=== PATIENT | female | born 1955 | race Hispanic/Latino ===

== ENCOUNTER 2021-06-25 09:18 | Observation (INO) | payer MEDICARE ==
[~2021-06-25] VITALS: Ht 167.6 cm; Wt 82.8 kg
[2021-06-25 09:33] LABS: BASOPHILS % (AUTO) 0.2 % (0.0-5.0); EOSINOPHILS % (AUTO) 0.2 % (0.0-8.0); LYMPHOCYTES % (AUTO) 14.2 % (21.0-51.0); MEAN CORPUSCULAR HEMOGLOBIN 28.8 pg (27.0-33.0); MEAN CORPUSCULAR VOLUME 90.1 fL (79-99); NEUTROPHILS % (AUTO) 76.1 % (40.0-77.0); PLATELET COUNT (AUTO) 213 K/uL (130-400); RED BLOOD CELL COUNT(AUTO) 4.55 MIL/uL (4.00-5.50); RED CELL DISTRIBUTION WIDTH 14.1 % (11.0-15.5); WHITE BLOOD COUNT (AUTO) 12.1 K/uL (4.8-10.8)
[2021-06-25 09:55] LABS: CREATININE 0.9 mg/dL (0.5-1.5); POTASSIUM 4.2 mmol/L (3.5-5.1)
[2021-06-25 09:59] LABS: ALBUMIN 3.3 g/dL (3.5-5.0); BILIRUBIN,TOTAL 0.5 mg/dL (0.2-1.0); TOTAL PROTEIN, SERUM 8.2 g/dL (6.0-8.3)
[2021-06-25 10:11] LABS: B-TYPE NATRIURETIC PEPTIDE 15 pg/mL (0-100)
[2021-06-25 10:48] VITALS: BP 154/67
[2021-06-25 11:03] LABS: APPEARANCE,URINE Clear (CLEAR); BILIRUBIN,URINE Negative (NEGATIVE); COLOR,URINE Yellow (YELLOW); GLUCOSE, URINE (UA) Negative (NEGATIVE); KETONES,URINE Negative (NEGATIVE); LEUKOCYTE ESTERASE ,URINE Trace (NEGATIVE); NITRATE,URINE Negative (NEGATIVE); OCCULT BLOOD,URINE Negative (NEGATIVE); PH,URINE 6.5 (5.0-8.0); PROTEIN,URINE Negative (NEGATIVE); UROBILINOGEN,URINE 0.2 mg/dL (0.2-1.0)
[2021-06-25 11:17] LABS: RBC,URINE 0-1 /HPF (0-1)
[2021-06-25 11:18] LABS: AMORPHOUS SEDIMENT,UR Moderate /LPF (None Seen); BACTERIA,URINE Few /HPF (None Seen); SQUAMOUS EPITHELIAL CELL,UR Moderate /HPF (0-2)
[2021-06-25 13:21] VITALS: BP 148/68
[2021-06-25 15:56] LABS: CREATINE KINASE, TOTAL 28 U/L (21-232); MYOGLOBIN 22 ng/mL (10-92); TROPONIN I < 0.04 ng/mL (0.00-0.06)
[2021-06-25 16:50] VITALS: BP 141/73
[2021-06-25] MEDS: ACETYLCYSTEINE 20% 200MG/ML 4ML VIAL IH SCH (18:17)
[2021-06-25] MEDS: IPRATROPIUM/ALBUTEROL SULFATE 3 ML SOLUTION IH SCH (18:17)
[2021-06-25] MEDS: MEROPENEM 1 GM VIAL IVP SCH (18:32)
[2021-06-25] MEDS: GUAIFENESIN-CODEINE 5 ML SYRUP PO SCH ×2 (18:32→23:53)
[2021-06-25 20:53] VITALS: BP 138/54
[2021-06-25 21:22] LABS: CREATINE KINASE, TOTAL 26 U/L (21-232); MYOGLOBIN 22 ng/mL (10-92); TROPONIN I < 0.04 ng/mL (0.00-0.06)
[2021-06-25 23:48] VITALS: BP 125/53
[2021-06-26] MEDS: ACETYLCYSTEINE 20% 200MG/ML 4ML VIAL IH SCH ×4 (00:14→19:14)
[2021-06-26] MEDS: IPRATROPIUM/ALBUTEROL SULFATE 3 ML SOLUTION IH SCH ×4 (00:14→19:14)
[2021-06-26] MEDS: MEROPENEM 1 GM VIAL IVP SCH ×3 (00:49→17:43)
[2021-06-26 03:41] LABS: BASOPHILS % (AUTO) 0.2 % (0.0-5.0); EOSINOPHILS % (AUTO) 0.4 % (0.0-8.0); HEMATOCRIT 37.3 % (36-48); LYMPHOCYTES % (AUTO) 27.3 % (21.0-51.0); MEAN CORPUSCULAR HEMOGLOBIN 28.4 pg (27.0-33.0); MEAN CORPUSCULAR HGB CONC 31.1 g/dL (32.0-36.0); MEAN CORPUSCULAR VOLUME 91.2 fL (79-99); MONOCYTES % (AUTO) 12.1 % (3.0-13.0); NEUTROPHILS % (AUTO) 59.4 % (40.0-77.0); PLATELET COUNT (AUTO) 196 K/uL (130-400); RED BLOOD CELL COUNT(AUTO) 4.09 MIL/uL (4.00-5.50); RED CELL DISTRIBUTION WIDTH 14.3 % (11.0-15.5); WHITE BLOOD COUNT (AUTO) 8.2 K/uL (4.8-10.8)
[2021-06-26 03:53] VITALS: BP 117/61
[2021-06-26 04:02] LABS: CARBON DIOXIDE 31 mmol/L (21-32); CHLORIDE 98 mmol/L (101-111); CREATINE KINASE, TOTAL 31 U/L (21-232); GLOMERULAR FILTR. RATE CALC 59 mL/min (>60); GLUCOSE,RANDOM 116 mg/dL (70-105); MYOGLOBIN 27 ng/mL (10-92); POTASSIUM 4.2 mmol/L (3.5-5.1); SODIUM SERUM 133 mmol/L (136-145); TROPONIN I < 0.04 ng/mL (0.00-0.06); UREA NITROGEN, BLOOD 14 mg/dL (7-18)
[2021-06-26 07:30] VITALS: BP 120/42
[2021-06-26] MEDS: GUAIFENESIN-CODEINE 5 ML SYRUP PO SCH ×3 (10:36→22:13)
[2021-06-26 11:00] VITALS: BP 144/39
[2021-06-26 15:46] LABS: ABG BASE EXCESS 1.5 mmol/L (-2.0-3.0); ABG OXYGEN SATURATION 97.6 % (95.0-99.0); ABG PCO2 29 mmHg (32-45)
[2021-06-26 16:00] VITALS: BP 143/56
[2021-06-26 19:00] VITALS: BP 143/87
[2021-06-27] VITALS: BP 141/67
[2021-06-27] MEDS: IPRATROPIUM/ALBUTEROL SULFATE 3 ML SOLUTION IH SCH ×3 (00:29→11:25)
[2021-06-27] MEDS: ACETYLCYSTEINE 20% 200MG/ML 4ML VIAL IH SCH (00:29)
[2021-06-27] MEDS: MEROPENEM 1 GM VIAL IVP SCH ×2 (00:56→10:22)
[2021-06-27 04:00] VITALS: BP 123/64
[2021-06-27] MEDS: GUAIFENESIN-CODEINE 5 ML SYRUP PO SCH ×3 (04:00→14:07)
[2021-06-27 08:02] VITALS: BP 123/42
[2021-06-27] MEDS ORDERED: SOLU-MEDROL 40MG VIAL IVP SCH (09:00)
[2021-06-27] MEDS ORDERED: LACTULOSE 20 GM/30 ML UDCUP PO PRN (09:00)
[2021-06-27 09:08] LABS: HEMATOCRIT 38.9 % (36-48); MEAN CORPUSCULAR HEMOGLOBIN 28.5 pg (27.0-33.0); MEAN CORPUSCULAR HGB CONC 31.6 g/dL (32.0-36.0); PLATELET COUNT (AUTO) 221 K/uL (130-400); RED BLOOD CELL COUNT(AUTO) 4.32 MIL/uL (4.00-5.50); RED CELL DISTRIBUTION WIDTH 14.2 % (11.0-15.5); WHITE BLOOD COUNT (AUTO) 7.2 K/uL (4.8-10.8)
[2021-06-27 09:29] LABS: LYMPHOCYTES % (MANUAL) 24 % (22-44); MAN.DIFF COMMENT-IMPRESSION MANUAL DIFFERENTIAL; MONOCYTES % (MANUAL) 9 % (2-9); PLATELET MORPHOLOGY COMMENT ADEQUATE; SEGMENTED NEUTROPHILS % 67 % (40-70)
[2021-06-27 11:34] VITALS: BP 112/58
[2021-06-27] MEDS ORDERED: FLUCONAZOLE 100 MG TAB PO SCH (13:42)
[2021-06-27 16:21] VITALS: BP 131/48
== END 2021-06-27 17:25 | disposition home or self-care (01) ==
LOC: EDH 09:18 → EDHIP 12:15 → INTOOBSV 12:15 → OBSVTOIN 12:15 → 3DH 15:03
PROVIDERS: ADMIT Internal Medicine; ATTEND Internal Medicine
DX: S09.90XA Unspecified injury of head, initial encounter (principal); Z20.822 Contact with and (suspected) exposure to COVID-19; S39.012A Strain of muscle, fascia and tendon of lower back, initial encounter; S70.01XA Contusion of right hip, initial encounter; S70.11XA Contusion of right thigh, initial encounter; R55 Syncope and collapse; J44.1 Chronic obstructive pulmonary disease with (acute) exacerbation; I10 Essential (primary) hypertension; J20.9 Acute bronchitis, unspecified; Z85.038 Personal history of other malignant neoplasm of large intestine; W18.2XXA Fall in (into) shower or empty bathtub, initial encounter; Y92.002 Bathroom of unspecified non-institutional (private) residence as the place of occurrence of the external cause; Y93.E1 Activity, personal bathing and showering
CPT/HCPCS: 36415 ×3; 36600; 70450; 71045; 71250; 72110; 73502; 80048 ×2; 80053; 81001; 82550 ×4; 82803; 83874 ×3; 83880; 84484 ×4; 85025 ×3; 87071; 87205; 87426; 87804 ×2; 93005; 93306; 93356 ×2; 94640 ×8; 94664; 94760 ×2; 96374; 96375; 96376 ×2; 97161; 99285; G0378 ×3; G8978; G8979; G8980; G8981; G8982; G8983; J2185 ×6; J2920; J7608 ×5